=== PATIENT | female | born 1935 | race Hispanic/Latino ===

== ENCOUNTER 2017-11-19 02:32 | Observation (INO) | payer MEDICARE ==
[2017-11-19 02:33] VITALS: BMI 25.4
--- NOTE | 2017-11-19 02:57 | C.PDOC ---
History Of Present Illness 82 year old female is transferred from [facility] ED for left flank pain. Patient was seen and worked up at [facility] that showed she had a left kidney stone. Patient was transferred to the ED for admission. Patient was medically cleared and treated with Rocephin at [facility]. Patient denies fever, chill, nausea, vomit, diarrhea. Time Seen by Provider: 11/19/17 02:43 Chief Complaint (Nursing): Abdominal Pain History Per: Patient History/Exam Limitations: no limitations Onset/Duration Of Symptoms: Days Current Symptoms Are (Timing): Still Present Location Of Pain/Discomfort: Diffuse Radiation Of Pain To:: Back Quality Of Discomfort: "Pain" Associated Symptoms: Urinary Symptoms Exacerbating Factors: None Alleviating Factors: None Recent travel outside of the [place]: No Additional History Per: Patient Abnormal Vaginal Bleeding: No Past Medical History Reviewed: Historical Data, Nursing Documentation, Vital Signs Vital Signs: Last Vital Signs Temp 98.8 F 11/19/17 02:43 Pulse 105 H 11/19/17 02:43 Resp 20 11/19/17 02:43 BP 94/63 L 11/19/17 02:43 Pulse Ox 98 11/19/17 04:40 - Medical History PMH: Hypercholesterolemia, Hyperlipidemia Surgical History: Cholecystectomy - [facility] Procedures CYSTOGRAM NEC (12/21/01) CYSTOMETROGRAM (12/21/01) CYSTOSCOPY NEC (12/21/01) ENDOSCOPIC REMOVAL OF STONE(S) FROM BILIARY TRACT (06/30/00) ENDOSCOPIC SPHINCTEROTOMY AND PAPILLOTOMY (06/30/00) Family History: States: Unknown Family Hx - Social History Hx Alcohol Use: No Hx Substance Use: No - Immunization History Hx Tetanus Toxoid Vaccination: No Hx Influenza Vaccination: Yes Hx Pneumococcal Vaccination: No Review Of Systems Constitutional: Negative for: Fever, Chills Cardiovascular: Negative for: Chest Pain Respiratory: Negative for: Shortness of Breath Gastrointestinal: Positive for: Abdominal Pain. Negative for: Nausea, Vomiting Musculoskeletal: Positive for: Back Pain Skin: Negative for: Rash Physical Exam - Physical Exam Appears: Non-toxic, No Acute Distress Skin: Warm, Dry Head: Normacephalic Eye(s): bilateral: Normal Inspection Nose: No Discharge Oral Mucosa: Moist Neck: Supple Chest: Symmetrical Cardiovascular: Rhythm Regular, No Murmur Respiratory: No Rales, No Rhonchi, No Wheezing Gastrointestinal/Abdominal: Soft, Tenderness (left flank ), No Guarding, No Rebound Extremity: Bilateral: Normal Color And Temperature, Normal ROM Neurological/Psych: Oriented x3, Normal Motor, Normal Sensation Gait: Steady ED Course And Treatment O2 Sat by Pulse Oximetry: 98 (ON RA) Pulse Ox Interpretation: Normal Progress Note: Plan: - EKG. - Labs. - Morphine 2 mg IVP. - Toradol 30 mg IVP. - Zofran 4 mg IVP. - IV fluids. - Blood culture Disposition Discussed With Dr.: Rodrigo Dorman Comment: accepted the pt on his service and took over the care at 4AM Doctor Will See Patient In The: ED Counseled Patient/Family Regarding: Studies Performed, Diagnosis - Disposition Disposition: HOSPITALIZED Disposition Time: 02:57 Condition: FAIR - Clinical Impression Clinical Impression: Abdominal pain, Cystitis, Renal colic on left side - Scribe Statement The provider has reviewed the documentation as recorded by the Scribe Christian Fair All medical record entries made by the Scribe were at my direction and personally dictated by me. I have reviewed the chart and agree that the record accurately reflects my personal performance of the history, physical exam, medical decision making, and the department course for this patient. I have also personally directed, reviewed, and agree with the discharge instructions and disposition. Decision To Admit - Pt Status Changed To: Hospital Disposition Of: Inpatient - Admit Certification Admit to Inpatient:: After my assessment, the patient will require hospitalization for at least two midnights. This is because of the severity of symptoms shown, intensity of services needed, and/or the medical risk in this patient being treated as an outpatient. - InPatient: Physician Admission Certification:: After my assessment, the patient will require hospitalization for at least two midnights. This is because of the severity of symptoms shown, intensity of services needed, and/or the medical risk in this patient being treated as an outpatient. - . Bed Request Type: Regular Admitting Physician: Rodrigo Dorman Patient Diagnosis: Cystitis, Renal colic on left side
[2017-11-19] MEDS ORDERED: Sodium Chloride 0.9% 1,000 ML IV ONE ×2 (03:33→11:15)
[2017-11-19] MEDS ORDERED: Morphine 4 MG/ML VIAL IVP PRN (03:43)
--- NOTE | 2017-11-19 03:44 | CP.PCM.HP ---
<AbhilashBruce pappas - Last Filed: 11/19/17 04:35> History of Present Illness - History of Present Illness History of Present Illness: CC: abdominal pain/flank pain/dysuria for 1d This patient is an 82yo F w/ a PMhx of HLD, and "low blood pressure" who states she had sudden onset lower abdominal and flank pain, worse on the left, since today at 3pm. She states she vomited NBNB contents 4-5 times and went to a satellite center in [place] for [facility] where the following labs were remarkable for: takes unknown "low blood pressure pill" that daughter who works here will bring in Patient comes with labs from [facility] center UA 3+ Leuk Nitrite positive with 3+ blood CT ab pelvis shows obstructing calculi along the proximal left ureter largest measuring up to 6mm with mild to moderate left hydro BUN 17 Creat 1.0 11.4 WBC She states she has never had this before. PMhx: HLD, "low blood pressure" Meds: Esomeprazole, Aspirin "three times a week", Simvastatin, and lasix "when she needs it" Allergies: Cipro; rash Surgical: bladder prolapse and vaginal prolapse with mesh, gallbladder removal, bilateral knee replacement, no adverse reaction to anesthesia in the past. FamHx: Denies Social: Smokes 1 pack for 60 years, social drinker 1-2 drinks on the weekend, denies illicit drugs, independent in all IADL and ADL. Present on Admission - Present on Admission Any Indicators Present on Admission: Yes History of DVT/PE: No History of Uncontrolled Diabetes: No Urinary Catheter: No Decubitus Ulcer Present: No Past Patient History - Past Social History Smoking Status: Heavy Smoker > 10 Cigarettes Daily - CARDIAC Hx Hypercholesterolemia: Yes - GASTROINTESTINAL Hx Gastroesophageal Reflux: Yes - PSYCHIATRIC Hx Substance Use: No - SURGICAL HISTORY Hx Cholecystectomy: Yes - ANESTHESIA Hx Anesthesia: Yes Hx Anesthesia Reactions: No Meds Allergies/Adverse Reactions: Allergies Allergy/AdvReac Type Severity Reaction Status Date / Time ciprofloxacin [From Cipro] Allergy Verified 11/19/17 02:56 Physical Exam - Constitutional Appears: Non-toxic - Head Exam Head Exam: ATRAUMATIC - Eye Exam Eye Exam: EOMI, Normal appearance, PERRL - ENT Exam ENT Exam: Mucous Membranes Moist - Neck Exam Neck exam: Positive for: Full Rom. Negative for: Lymphadenopathy - Respiratory Exam Respiratory Exam: Clear to Auscultation Bilateral, NORMAL BREATHING PATTERN. absent: Rales, Rhonchi, Wheezes - Cardiovascular Exam Cardiovascular Exam: REGULAR RHYTHM, +S1, +S2. absent: Diastolic murmur, Systolic Murmur - GI/Abdominal Exam GI & Abdominal Exam: Soft, Tenderness (in the LLQ and CVA L ). absent: Guarding , Hernia, Rebound, Rigid - Extremities Exam Extremities exam: Positive for: full ROM. Negative for: calf tenderness - Back Exam Back exam: CVA tenderness (L), NORMAL INSPECTION. absent: CVA tenderness (R), paraspinal tenderness - Neurological Exam Neurological exam: Alert, CN II-XII Intact, Oriented x3 - Psychiatric Exam Psychiatric exam: Normal Affect - Skin Skin Exam: Warm Results - Vital Signs Recent Vital Signs: Last Vital Signs Temp 98.8 F 11/19/17 02:43 Pulse 105 H 11/19/17 02:43 Resp 20 11/19/17 02:43 BP 94/63 L 11/19/17 02:43 Pulse Ox 98 11/19/17 02:57 Assessment & Plan - Assessment and Plan (Free Text) Assessment: 82yo F admitted for obstructing renal stone Obstructing Renal Stone -please refer to cat scan from center in patients chart for imaging -labs that were done are also in chart as well; added pre-op labs necessary as well -Dr. Katia Alex; Urology; thank you for your help -NPO, pain control, for surgery/stent placement today -will do echo for preopclearance; given patients age and HLD (with large calcifications on CT in aorta) will need cardiac clearance with echo Hx of HLD -will hold statin for now Proph -Pepcid IV 20 -does not need chemical DVT Discussed with Dr. Dandy Schultz PGY2 Decision To Admit - Pt Status Changed To: Hospital Disposition Of: Observation - . Bed Request Type: Regular Admitting Physician: Rodrigo oDrman <Rodrigo Dorman - Last Filed: 11/19/17 06:42> Results - Vital Signs Recent Vital Signs: Last Vital Signs Temp 97.9 F 11/19/17 05:00 Pulse 90 11/19/17 05:00 Resp 20 11/19/17 05:00 BP 97/58 L 11/19/17 05:00 Pulse Ox 94 L 11/19/17 05:29 - Labs Labs: Laboratory Results - last 24 hr 11/19/17 03:40 PT 12.2 INR 1.1 APTT 33 Attending/Attestation - Attestation I have personally seen and examined this patient.: Yes I have fully participated in the care of the patient.: Yes I have reviewed all pertinent clinical information: Yes Notes (Text): Assessment * Right ureteric calculus proximal x3 6mm size, obstructing, with hydroneprhosis and pain, transferred from free standing ER at [place] with CT report and blood work, Urology recommended need of stent. * H/o chronic tobaco abuse * H/o hypotension and patient on medication for the same, details will be available form family today Plan * CXR, ekg, needed preoperatively * Echo but may not need prior to surgery, but should have as soon available due to h/o hypotension, tobacco abuse, advanced age, atherosclerosis * Emperic Rocephin * Can go for surg with moderate risk for GA, especially h/o hypotension, hemodynamic changes may happen once patient is induced. * GI/dvt prophylaxis * See orders for detail. * Counselled about tobacco cessation.
[2017-11-19] MEDS ORDERED: Sodium Chloride 0.9% 1,000 ML IV SCH ×2 (04:00→09:47)
[2017-11-19] MEDS ORDERED: Sodium Chloride 0.9% 1,000 ML ONE (04:30)
[2017-11-19 04:40] LABS: INR 1.1; PROTHROMBIN TIME 12.2 SECONDS (9.7-12.2)
[2017-11-19] MEDS ORDERED: cefTRIAXone IV 1 gm in Dextros 50 ML IVPB ONE (08:22)
[2017-11-19] MEDS ORDERED: Iohexol 240 (50 ml) ONE (08:22)
[2017-11-19] MEDS ORDERED: Lidocaine 2% Jelly (Uro-Jet) ONE (08:23)
[2017-11-19] MEDS ORDERED: Propofol 10 mg/ml Inj (20 ML) ONE (08:28)
[2017-11-19] MEDS ORDERED: Phenylephrine 10 mg/ml Inj ONE (08:34)
--- NOTE | 2017-11-19 09:00 | CP.PCM.CON ---
Past Patient History - Past Medical History & Family History Past Medical History?: Yes - Past Social History Smoking Status: Heavy Smoker > 10 Cigarettes Daily - CARDIAC Hx Cardiac Disorders: Yes Hx Hypercholesterolemia: Yes - PULMONARY Hx Respiratory Disorders: No - NEUROLOGICAL Hx Neurological Disorder: No - HEENT Hx HEENT Problems: No - RENAL Hx Chronic Kidney Disease: No - ENDOCRINE/METABOLIC Hx Endocrine Disorders: No - HEMATOLOGICAL/ONCOLOGICAL Hx Blood Disorders: No - INTEGUMENTARY Hx Dermatological Problems: No - MUSCULOSKELETAL/RHEUMATOLOGICAL Hx Musculoskeletal Disorders: No Hx Falls: No - GASTROINTESTINAL Hx Gastrointestinal Disorders: Yes Hx Gastroesophageal Reflux: Yes - GENITOURINARY/GYNECOLOGICAL Hx Genitourinary Disorders: No - PSYCHIATRIC Hx Substance Use: No - SURGICAL HISTORY Hx Surgeries: Yes Hx Cholecystectomy: Yes - ANESTHESIA Hx Anesthesia: Yes Hx Anesthesia Reactions: No Meds Allergies/Adverse Reactions: Allergies Allergy/AdvReac Type Severity Reaction Status Date / Time ciprofloxacin [From Cipro] Allergy Verified 11/19/17 02:56 - Medications Medications: Current Medications Sodium Chloride (Sodium Chloride 0.9%) 1,000 mls @ 100 mls/hr IV .Q10H ONE Stop: 11/19/17 13:32 Last Admin: 11/19/17 04:30 Dose: Not Given Sodium Chloride (Sodium Chloride 0.9%) 1,000 mls @ 150 mls/hr IV .Q6H40M [facility] Last Admin: 11/19/17 04:30 Dose: 150 mls/hr Ceftriaxone Sodium (Rocephin Iv 1 Gm Duplex) 50 mls @ 100 mls/hr IVPB DAILY KEYUR PRN Reason: Protocol Ketorolac Tromethamine (Toradol) 30 mg IVP Q6H PRN PRN Reason: Pain, moderate (4-7) Morphine Sulfate (Morphine) 2 mg IVP Q6H PRN PRN Reason: Pain, severe (8-10) Ondansetron HCl (Zofran Inj) 4 mg IVP Q6 PRN PRN Reason: Nausea/Vomiting Pneumococcal Polyvalent Vaccine (Pneumovax 23 Vaccine) 0.5 ml IM .ONCE ONE Stop: 11/21/17 14:01 Results - Vital Signs Recent Vital Signs: Last Vital Signs Temp 98.5 F 11/19/17 07:00 Pulse 93 H 11/19/17 07:00 Resp 20 11/19/17 07:00 BP 96/55 L 11/19/17 07:00 Pulse Ox 95 11/19/17 07:00 - Labs Labs: Laboratory Results - last 24 hr 11/19/17 03:40 PT 12.2 INR 1.1 APTT 33 Assessment & Plan - Assessment and Plan (Free Text) Assessment: Imp: L renal colic UTI Full note t/f - Date & Time Date: 11/19/17 Time: 08:05
--- NOTE | 2017-11-19 09:03 | PCM.SURG1 ---
Surgeon's Initial Post Op Note - Surgeon's Notes Surgeon: Douglas Rooney Manager Coding: none Type of Anesthesia: IV Sedation Pre-Operative Diagnosis: L renal colic. LL Hydronephrosis Operative Findings: same Post-Operative Diagnosis: same. cystitis Operation Performed: cysto. insertion of L ureteral stent. EUA Specimen/Specimens Removed: urine - bladder, L kidney Estimated Blood Loss: EBL {In ML}: 0 Blood Products Given: N/A Post-Op Condition: Good Date of Surgery/Procedure: 11/19/17 Time of Surgery/Procedure: 09:02
[2017-11-19] MEDS ORDERED: HYDROmorphone 0.5 mg/0.5 ml ISec IVP PRN (09:08)
[2017-11-19] MEDS ORDERED: Sodium Chloride 0.9% 500 ML IV ONE ×4 (09:15→10:45)
--- NOTE | 2017-11-19 09:18 | RAD ---
Chest x-ray single frontal view History: Preoperative evaluation. Comparison: 11/19/2017 Findings: Mild venous congestion. Right hilar prominence. Patchy increased markings at the left lung base which may represent mild atelectasis and or subtle infiltrate. Cardiomegaly. Calcification at the aortic knob. Biapical pleural thickening with upper lobe granulomatous changes. Degenerative changes in the spine and shoulders. Impression: Mild venous congestion. Right hilar prominence. Patchy increased markings at the left lung base which may represent mild atelectasis and or subtle infiltrate. Cardiomegaly. Calcification at the aortic knob. Biapical pleural thickening with upper lobe granulomatous changes.
[2017-11-19 09:36] LABS: BASO # 0.1 K/uL (0.0-0.2); BASO % 0.3 % (0.0-2.0); EOS % 0.2 % (0.0-4.0); HEMOGLOBIN 12.7 g/dL (11.0-16.0); LYMPH # 1.6 K/uL (1.0-4.3); MEAN CORPUSCULAR HEMOGLOBIN 32.9 pg (27.0-31.0); MEAN PLATELET VOLUME 7.6 fL (7.2-11.7); MONO % 4.9 % (0.0-10.0); NEUT # 17.3 K/uL (1.8-7.0); NEUT % 86.6 % (50.0-75.0); PLATELET COUNT 144 K/uL (130-400); RBC 3.85 Mil/uL (3.80-5.20); RED CELL DISTRIBUTION WIDTH 12.5 % (11.5-14.5); WHITE BLOOD COUNT 19.9 K/uL (4.8-10.8)
[2017-11-19 09:47] LABS: CALCIUM 8.4 mg/dl (8.6-10.4)
[2017-11-19 10:00] LABS: LYMPHOCYTE 10 % (20-40); MONOCYTE 3 % (0-10); NEUTROPHIL 87 % (50-75); PLATELET ESTIMATE NORMAL (NORMAL); TOTAL CELLS COUNTED 100
[2017-11-19] MEDS ORDERED: cefTRIAXone IV 1 gm in Dextros 50 ML IVPB SCH (10:00)
[2017-11-19] MEDS ORDERED: ePHEDrine 50 mg/ml Inj ONE (10:01)
--- NOTE | 2017-11-19 11:08 | CP.PCM.PN ---
<Yaritza Dietz - Last Filed: 11/19/17 17:36> Subjective - Date & Time of Evaluation Date of Evaluation: 11/19/17 Time of Evaluation: 07:00 - Subjective Subjective: PGY-1 Medicine Note Patient seen and examined at bedside. Patient says she is very tired because she didn't get much sleep last night. Patient says her pain is well controlled and she is only having minimal left sided abdominal pain that radiates to the left flank. Patient has not vomited since yesterday and does not feel nauseous. Patient denies any shortness of breath or chest pain. Objective - Vital Signs/Intake and Output Vital Signs (last 24 hours): Temp Pulse Resp BP Pulse Ox 100.3 F H 89 19 79/50 L 100 11/19/17 09:30 11/19/17 10:15 11/19/17 10:15 11/19/17 10:15 11/19/17 10:15 Intake and Output: 11/19/17 11/19/17 06:59 18:59 Intake Total 450 Balance 450 - Medications Medications: Current Medications Hydromorphone HCl (Dilaudid) 0.5 mg IVP Q10M PRN PRN Reason: Pain, severe (8-10) Stop: 11/19/17 11:08 Ceftriaxone Sodium (Rocephin Iv 1 Gm Duplex) 50 mls @ 100 mls/hr IVPB DAILY KEYUR PRN Reason: Protocol Last Admin: 11/19/17 10:50 Dose: Not Given Sodium Chloride (Sodium Chloride 0.9%) 1,000 mls @ 75 mls/hr IV .[id number] KEYUR Sodium Chloride (Sodium Chloride 0.9%) 1,000 mls @ 125 mls/hr IV .Q8H [facility] Sodium Chloride (Sodium Chloride 0.9%) 500 mls @ 500 mls/hr IV .Q1H ONE Stop: 11/19/17 11:14 Ketorolac Tromethamine (Toradol) 30 mg IVP Q6H PRN PRN Reason: Pain, moderate (4-7) Morphine Sulfate (Morphine) 2 mg IVP Q6H PRN PRN Reason: Pain, severe (8-10) Ondansetron HCl (Zofran Inj) 4 mg IVP Q6 PRN PRN Reason: Nausea/Vomiting Pneumococcal Polyvalent Vaccine (Pneumovax 23 Vaccine) 0.5 ml IM .ONCE ONE Stop: 11/21/17 14:01 - Labs Labs: 11/19/17 09:25 11/19/17 09:25 PT 12.2 SECONDS (9.7-12.2) 11/19/17 03:40 INR 1.1 11/19/17 03:40 APTT 33 SECONDS (21-34) 11/19/17 03:40 - Additional Findings Additional findings: - Constitutional Appears: Non-toxic - Head Exam Head Exam: ATRAUMATIC - Eye Exam Eye Exam: EOMI, Normal appearance, PERRL - ENT Exam ENT Exam: Mucous Membranes Moist - Neck Exam Neck exam: Positive for: Full Rom. Negative for: Lymphadenopathy - Respiratory Exam Respiratory Exam: Clear to Auscultation Bilateral, NORMAL BREATHING PATTERN. absent: Rales, Rhonchi, Wheezes - Cardiovascular Exam Cardiovascular Exam: REGULAR RHYTHM, +S1, +S2. absent: Diastolic murmur, Systolic Murmur - GI/Abdominal Exam GI & Abdominal Exam: Soft, Tenderness (in the LLQ and CVA L ). absent: Guarding , Hernia, Rebound, Rigid - Extremities Exam Extremities exam: Positive for: full ROM. Negative for: calf tenderness - Back Exam Back exam: CVA tenderness (L), NORMAL INSPECTION. absent: CVA tenderness (R), paraspinal tenderness - Neurological Exam Neurological exam: Alert, CN II-XII Intact, Oriented x3 - Psychiatric Exam Psychiatric exam: Normal Affect - Skin Skin Exam: Warm Assessment and Plan - Assessment and Plan (Free Text) Assessment: Obstructing Renal Stone -please refer to cat scan from center in patients chart for imaging -elevated WBC: 11.4 -labs that were done are also in chart as well; added pre-op labs necessary as well -Dr. Katia Alex; Urology; thank you for your help -patient had L ureteral stent placement with Dr. Alex -continue Toradol/ morphine for pain control -Zofran prn for nausea -NS @ 75cc/hr -Ceftriaxone stopped, Primaxin 500mg q6h started on 11/19 -ID, Dr. Chauhan consulted, help appreciated -f/u labs in AM Mild Atelectasis and or Infiltrate Cxray: mild venous congestion, right hilar prominence, patchy increased markings at the left lung base which may represent mild atelectasis and or subtle infiltrate, right hilar prominence, cardiomegaly, calcification at aortic knob, biapical pleural thickening with upper lobe granulomatous changes. -repeat xray in AM Hypotension patient restarted on home medication Midodrine 5mg po daily NS @ 75cc/hr continue to monitor Hx of HLD -will hold statin for now Proph -Pepcid IV 20 -does not need chemical DVT -SCDs <Cm Gant H - Last Filed: 11/20/17 07:08> Objective - Vital Signs/Intake and Output Vital Signs (last 24 hours): Temp Pulse Resp BP Pulse Ox 98.7 F 85 20 99/53 L 98 11/20/17 06:27 11/20/17 06:27 11/20/17 06:27 11/20/17 06:27 11/19/17 23:05 Intake and Output: 11/20/17 11/20/17 06:59 18:59 Intake Total 1125 Balance 1125 - Medications Medications: Current Medications Acetaminophen (Tylenol 325mg Tab) 650 mg PO Q6 PRN PRN Reason: Fever >100.4 F Last Admin: 11/19/17 13:23 Dose: 650 mg Famotidine (Pepcid) 20 mg PO DAILY [facility] Last Admin: 11/19/17 12:02 Dose: 20 mg Sodium Chloride (Sodium Chloride 0.9%) 1,000 mls @ 75 mls/hr IV .[id number] [facility] Sodium Chloride (Sodium Chloride 0.9%) 1,000 mls @ 125 mls/hr IV .Q8H [facility] Last Admin: 11/20/17 06:26 Dose: Not Given Imipenem/Cilastatin Sodium 500 (mg/ Sodium Chloride) 100 mls @ 100 mls/hr IVPB Q6H [facility] PRN Reason: Protocol Last Admin: 11/20/17 06:26 Dose: 100 mls/hr Ketorolac Tromethamine (Toradol) 30 mg IVP Q6H PRN PRN Reason: Pain, moderate (4-7) Midodrine (Proamatine) 5 mg PO DAILY [facility] Last Admin: 11/19/17 12:02 Dose: 5 mg Ondansetron HCl (Zofran Inj) 4 mg IVP Q6 PRN PRN Reason: Nausea/Vomiting Pneumococcal Polyvalent Vaccine (Pneumovax 23 Vaccine) 0.5 ml IM .ONCE ONE Stop: 11/21/17 14:01 Tiotropium Decker (Spiriva) 18 mcg INH RQ24 KEYUR - Labs Labs: 11/19/17 09:25 11/19/17 09:25 PT 12.2 SECONDS (9.7-12.2) 11/19/17 03:40 INR 1.1 11/19/17 03:40 APTT 33 SECONDS (21-34) 11/19/17 03:40 Attending/Attestation - Attestation I have personally seen and examined this patient.: Yes I have fully participated in the care of the patient.: Yes I have reviewed all pertinent clinical information, including history, physical exam and plan: Yes Notes (Text): Medical attending: Patient was seen and examined by me. Agree with the above note by the resident The patient had completed a cystoscopy and stenting done in the morning and had returned from the procedure. Her blood pressure, which she explained to us is usually low and requiring her to be on PO midodrine - was low and considering there is a WBC elevation this was particularly concerning. Abx changed over to Primaxin IV to better cover gram negatives bacteria Also ABG was done, also procalcitonin. The blood and urine studies were already collected and pending When seen after procedure she explained she felt better - no longer with the flank pain Considering her low BP and WBC we will have to monitor her carefully while here. thank you Cm Gant
[2017-11-19] MEDS: Sodium Chloride 0.9% 1,000 ML IV SCH ×2 (12:02→20:45)
[2017-11-19 13:18] LABS: ABG ALLEN TEST POS; ARTERIAL BLOOD GAS HCO3 23.2 mmol/L (21-28); ARTERIAL BLOOD GAS O2 SAT 96.3 % (95-98); ARTERIAL BLOOD GAS PCO2 36 mm/Hg (35-45); ARTERIAL BLOOD GAS PO2 64 mm/Hg (80-100); ARTERIAL BLOOD GAS TCO2 23.4 mmol/L (22-28)
--- NOTE | 2017-11-19 13:53 | RAD ---
PROCEDURE: Intraoperative fluoroscopy HISTORY: OBSTRUCTING URETERAL STONE/HYDRONEPHROSIS COMPARISON: Not available TECHNIQUE: Intraoperative fluoroscopy was provided for retrograde pyelo ureteral atrophy and left ureteral stent insertion. Total time of fluoroscopy was 17.0 seconds. FINDINGS: Multiple fluoroscopic spot films are submitted. IMPRESSION: Fluoroscopy provided.
--- NOTE | 2017-11-19 13:58 | RAD ---
HISTORY: HYDRONEPHROSIS COMPARISON: No prior. FINDINGS: BOWEL: The examination demonstrates contrast material within the collecting system bilaterally. There is left hydroureteronephrosis. There is mild dilatation of the right renal pelvis without caliceal dilatation. No filling defect is identified within the collecting system. BONES: Normal. OTHER FINDINGS: None. IMPRESSION: Left hydroureteronephrosis.
--- NOTE | 2017-11-19 14:14 | CP.PCM.CON ---
History of Present Illness - History of Present Illness History of Present Illness: 82yo F admitted after she had sudden onset lower abdominal and flank pain, worse on the left assoc with vomiting Work up revealed ureteral calculus and underwent stent placement in OR Has hydronephrosis and being treated for UTI / pyelo IV rx in progress ID consulted for antibiotic management PMhx: HLD, "low blood pressure" Meds: Esomeprazole, Aspirin "three times a week", Simvastatin, and lasix "when she needs it" Allergies: Cipro; rash Surgical: bladder prolapse and vaginal prolapse with mesh, gallbladder removal, bilateral knee replacement, no adverse reaction to anesthesia in the past. FamHx: Denies Social: Smokes 1 pack for 60 years, social drinker 1-2 drinks on the weekend, denies illicit drugs, independent in all IADL and ADL. Review of Systems - Constitutional Constitutional: As Per HPI - EENT Eyes: absent: As Per HPI, Blind Spots, Blurred Vision, Change in Vision, Decreased Night Vision, Diplopia, Discharge, Dry Eye, Exophthalmos, Floaters, Irritation, Itchy Eyes, Loss of Peripheral Vision, Pain, Photophobia, Requires Corrective Lenses, Sees Flashes, Spots in Vision, Tunnel Vision, Other Visual Disturbances, Loss of Vision, Other Ears: absent: As Per HPI, Decreased Hearing, Ear Discharge, Ear Pain, Tinnitus, Abnormal Hearing, Disequilibrium, Dizziness, Other Nose/Mouth/Throat: absent: As Per HPI, Epistaxis, Nasal Congestion, Nasal Discharge, Nasal Obstruction, Nasal Trauma, Nose Pain, Post Nasal Drip, Sinus Pain, Sinus Pressure, Bleeding Gums, Change in Voice, Dental Pain, Dry Mouth, Dysphagia, Halitosis, Hoarsness, Lip Swelling, Mouth Lesions, Mouth Pain, Odynophagia, Sore Throat, Throat Swelling, Tongue Swelling, Facial Pain, Neck Pain, Neck Mass, Other - Breasts Breasts: absent: As Per HPI, Change in Shape, Mass, Pain, Nipple Discharge, Nipple Inversion, Skin Changes, Swelling, Other - Cardiovascular Cardiovascular: absent: As Per HPI, Acrocyanosis, Chest Pain, Chest Pain at Rest , Chest Pain with Activity, Claudication, Diaphoresis, Dyspnea, Dyspnea on Exertion, Edema, Irregular Heart Rhythm, Pain Radiating to Arm/Neck/Jaw, Leg Edema, Leg Ulcers, Lightheadedness, Orthopnea, Palpitations, Paroxysmal Nocturnal Dyspnea, Pedal Edema, Radiating Pain, Rapid Heart Rate, Slow Heart Rate, Syncope, Other - Gastrointestinal Gastrointestinal: absent: As Per HPI, Abdominal Pain, Belching, Bloating, Change in Bowel Habits, Change in Stool Character, Coffee Ground Emesis, Constipation, Cramping, Diarrhea, Dyspepsia, Dysphagia, Early Satiety, Excessive Flatus, Fecal Incontinence, Heartburn, Hematemesis, Hematochezia, Loose Stools, Melena, Nausea, Odynophagia, Temesmus, Vomiting, Other - Genitourinary Genitourinary: As Per HPI - Reproductive: Female Reproductive:Female: absent: As Per HPI, Amenorrhea, Amenorrhea/ Control, Currently Menstual, Cycle <21 Days, Cycle >35 Days, Cycle Variable, Menses 1-7 Days, Menses >/= 8 Days, Menses Variable, Cycle > 4 Weeks Between, No Menses for 6 Months, Heavy Menses, Light Menses, Normal Menses, Spotting Between Cycles , S/P Hysterectomy, Menopausal, Post Menopausal, Premenarche, Abnormal Vaginal Bleeding, Dysmenorrhea, Dyspareunia, Genital Lesions, Genital Pruritis, Pelvic Pain, Prolapse Symptoms, Sexual Dysfunction, Vaginal Discharge, Vaginal Dryness , Vaginal Odor, Vaginal Pruritis, Other - Menstruation Menstruation: absent: As Per HPI, Amenorrhea, Amenorrhea/ Control, Currently Menstual, Cycle <21 Days, Cycle >35 Days, Cycle Variable, Menses 1-7 Days, Menses >/= 8 Days, Menses Variable, Cycle > 4 Weeks Between, No Menses for 6 Months, Heavy Menses, Light Menses, Normal Menses, Spotting Between Cycles , S/P Hysterectomy, Menopausal, Post Menopausal, Premenarche, Abnormal Vaginal Bleeding, Dysmenorrhea, Other - Musculoskeletal Musculoskeletal: absent: As Per HPI, Abnormal Gait, Arthralgias, Atrophy, Back Pain, Deformity, Joint Swelling, Limited Range of Motion, Loss of Height, Muscle Cramps, Muscle Weakness, Myalgias, Neck Pain, Numbness, Radiating Pain into Limb, Stiffness, Tingling, Other - Integumentary Integumentary: absent: As Per HPI, Acne, Alopecia, Bleeding Lesions, Change in Hair, Change in Nails, Change in Pigmentation, Changing Lesions, Dry Skin, Erythema, Furuncle, Hirsutism, Lesions, New Lesions, Non-Healing Lesions, Photosensitivity, Pruritus, Rash, Skin Pain, Skin Ulcer, Sores, Striae, Swelling , Unusual Bruising, Wounds, Jaundice, Other - Neurological Neurological: absent: As Per HPI, Abnormal Gait, Abnormal Hearing, Abnormal Movements, Abnormal Speech, Behavioral Changes, Burning Sensations, Confusion, Convulsions, Disequilibrium, Dizziness, Numbness, Focal Weakness, Frequent Falls , Headaches, Lack of Coordination, Loss of Vision, Memory Loss, Paresthesias, Radicular Pain, Restless Legs, Sensory Deficit, Syncope, Tingling, Tremor, Vertigo, Weakness, Other Visual Disturbances, Other - Psychiatric Psychiatric: absent: As Per HPI, Abnormal Sleep Pattern, Anhedonia, Anxiety, Auditory Hallucinations, Behavioral Changes, Change in Appetite, Change in Libido, Confusion, Depression, Difficulty Concentrating, Hallucinations, Homicidal Ideation, Hopelessness, Irritability, Memory Loss, Mood Swings, Panic Attacks, Paranoia, Suicidal Ideation, Visual Hallucinations, Tactile Hallucinations, Other - Endocrine Endocrine: absent: As Per HPI, Change in Body Appearance, Change in Libido, Cold Intolorance, Deepening of Voice, Excessive Sweating, Fatigue, Flushing, Heat Intolorance, Increase in Ring/Shoe/Hat Size, Palpitations, Polydipsia, Polyphagia, Polyuria, Other - Hematologic/Lymphatic Hematologic: absent: As Per HPI, Easy Bleeding, Easy Bruising, Lymphadenopathy, Other Past Patient History - Past Medical History & Family History Past Medical History?: Yes - Past Social History Smoking Status: Heavy Smoker > 10 Cigarettes Daily - CARDIAC Hx Cardiac Disorders: Yes Hx Hypercholesterolemia: Yes - PULMONARY Hx Respiratory Disorders: No - NEUROLOGICAL Hx Neurological Disorder: No - HEENT Hx HEENT Problems: No - RENAL Hx Chronic Kidney Disease: No - ENDOCRINE/METABOLIC Hx Endocrine Disorders: No - HEMATOLOGICAL/ONCOLOGICAL Hx Blood Disorders: No - INTEGUMENTARY Hx Dermatological Problems: No - MUSCULOSKELETAL/RHEUMATOLOGICAL Hx Musculoskeletal Disorders: No Hx Falls: No - GASTROINTESTINAL Hx Gastrointestinal Disorders: Yes Hx Gastroesophageal Reflux: Yes - GENITOURINARY/GYNECOLOGICAL Hx Genitourinary Disorders: No - PSYCHIATRIC Hx Substance Use: No - SURGICAL HISTORY Hx Surgeries: Yes Hx Cholecystectomy: Yes - ANESTHESIA Hx Anesthesia: Yes Hx Anesthesia Reactions: No Meds Allergies/Adverse Reactions: Allergies Allergy/AdvReac Type Severity Reaction Status Date / Time ciprofloxacin [From Cipro] Allergy Verified 11/19/17 02:56 - Medications Medications: Current Medications Acetaminophen (Tylenol 325mg Tab) 650 mg PO Q6 PRN PRN Reason: Fever >100.4 F Last Admin: 11/19/17 13:23 Dose: 650 mg Famotidine (Pepcid) 20 mg PO DAILY [facility] Last Admin: 11/19/17 12:02 Dose: 20 mg Sodium Chloride (Sodium Chloride 0.9%) 1,000 mls @ 75 mls/hr IV .[id number] [facility] Sodium Chloride (Sodium Chloride 0.9%) 1,000 mls @ 125 mls/hr IV .Q8H [facility] Last Admin: 11/19/17 12:02 Dose: 125 mls/hr Imipenem/Cilastatin Sodium 500 (mg/ Sodium Chloride) 100 mls @ 100 mls/hr IVPB Q6H [facility] PRN Reason: Protocol Last Admin: 11/19/17 13:26 Dose: 100 mls/hr Ketorolac Tromethamine (Toradol) 30 mg IVP Q6H PRN PRN Reason: Pain, moderate (4-7) Midodrine (Proamatine) 5 mg PO DAILY [facility] Last Admin: 11/19/17 12:02 Dose: 5 mg Ondansetron HCl (Zofran Inj) 4 mg IVP Q6 PRN PRN Reason: Nausea/Vomiting Pneumococcal Polyvalent Vaccine (Pneumovax 23 Vaccine) 0.5 ml IM .ONCE ONE Stop: 11/21/17 14:01 Physical Exam - Constitutional Appears: Non-toxic, Chronically Ill - Head Exam Head Exam: NORMOCEPHALIC - Eye Exam Eye Exam: PERRL - ENT Exam ENT Exam: Mucous Membranes Dry, Normal External Ear Exam - Neck Exam Neck exam: Negative for: Lymphadenopathy - Respiratory Exam Respiratory Exam: Decreased Breath Sounds, Clear to Auscultation Bilateral - Cardiovascular Exam Cardiovascular Exam: REGULAR RHYTHM, +S1, +S2 - GI/Abdominal Exam GI & Abdominal Exam: Diminished Bowel Sounds, Soft. absent: Tenderness - Rectal Exam Rectal Exam: Deferred - Exam Exam: NORMAL INSPECTION - Extremities Exam Extremities exam: Negative for: pedal edema - Back Exam Back exam: absent: CVA tenderness (L), CVA tenderness (R) - Neurological Exam Neurological exam: Alert, CN II-XII Intact, Oriented x3, Reflexes Normal - Psychiatric Exam Psychiatric exam: Normal Mood - Skin Skin Exam: Dry Results - Vital Signs Recent Vital Signs: Last Vital Signs Temp 100.3 F H 11/19/17 13:23 Pulse 90 11/19/17 11:30 Resp 20 11/19/17 11:30 BP 79/51 L 11/19/17 12:50 Pulse Ox 95 11/19/17 11:30 - Labs Result Diagrams: 11/19/17 09:25 11/19/17 09:25 Labs: Laboratory Results - last 24 hr 11/19/17 11/19/17 11/19/17 03:40 09:25 09:25 WBC 19.9 H RBC 3.85 Hgb 12.7 Hct 36.2 MCV 94.0 MCH 32.9 H MCHC 35.0 RDW 12.5 Plt Count 144 MPV 7.6 Neut % (Auto) 86.6 H Lymph % (Auto) 8.0 L [place] % (Auto) 4.9 Eos % (Auto) 0.2 Baso % (Auto) 0.3 Neut # (Auto) 17.3 H Lymph # (Auto) 1.6 [place] # (Auto) 1.0 H Eos # (Auto) 0.0 Baso # (Auto) 0.1 Neutrophils % (Manual) 87 H Lymphocytes % (Manual) 10 L Monocytes % (Manual) 3 Platelet Estimate Normal RBC Morphology Normal PT 12.2 INR 1.1 APTT 33 Puncture Site pCO2 pO2 HCO3 ABG pH ABG Total CO2 ABG O2 Saturation ABG Base Excess Loc Test ABG Potassium Glucose Lactate Sodium 141 Potassium 4.4 Chloride 109 H Carbon Dioxide 21 L Anion Gap 16 BUN 17 Creatinine 1.2 Est GFR ( Amer) 52 Est GFR (Non-Af Amer) 43 Random Glucose 99 Calcium 8.4 L Arterial Blood Potassium 11/19/17 13:15 WBC RBC Hgb Hct MCV MCH MCHC RDW Plt Count MPV Neut % (Auto) Lymph % (Auto) [place] % (Auto) Eos % (Auto) Baso % (Auto) Neut # (Auto) Lymph # (Auto) [place] # (Auto) Eos # (Auto) Baso # (Auto) Neutrophils % (Manual) Lymphocytes % (Manual) Monocytes % (Manual) Platelet Estimate RBC Morphology PT INR APTT Puncture Site Rra pCO2 36 pO2 64 L HCO3 23.2 ABG pH 7.40 ABG Total CO2 23.4 ABG O2 Saturation 96.3 ABG Base Excess -2.0 Loc Test Pos ABG Potassium 3.9 Glucose 100 Lactate 0.7 Sodium 138.0 Potassium Chloride 110.0 H Carbon Dioxide Anion Gap BUN Creatinine Est GFR ( Amer) Est GFR (Non-Af Amer) Random Glucose Calcium Arterial Blood Potassium 3.9 Assessment & Plan (1) UTI (urinary tract infection) Status: Acute (2) Abdominal pain Status: Acute (3) Cystitis Status: Acute (4) Renal colic on left side Status: Acute - Assessment and Plan (Free Text) Assessment: cont empiric IV antibiotics Plan: await cultures
[2017-11-19 20:36] LABS: SQUAMOUS EPITHIAL 1 /hpf (0-5); URINE BACTERIA RARE (<OCC); URINE BILIRUBIN NEGATIVE (NEGATIVE); URINE BLOOD 3+ (NEGATIVE); URINE CLARITY Hazy (Clear); URINE COLOR Red (YELLOW); URINE GLUCOSE (UA) 1+ mg/dL (Normal); URINE LEUKOCYTE ESTERASE 3+ Leu/uL (Negative); URINE PROTEIN 2+ mg/dL (NEGATIVE)
[2017-11-19 22:06] VITALS: RESP 20
[2017-11-20] MEDS: Sodium Chloride 0.9% 1,000 ML IV SCH ×2 (06:26→11:00)
[2017-11-20 07:14] LABS: BASO # 0.1 K/uL (0.0-0.2); BASO % 0.4 % (0.0-2.0); EOS # 0.1 K/uL (0.0-0.7); HEMOGLOBIN 10.9 g/dL (11.0-16.0); LYMPH # 1.8 K/uL (1.0-4.3); LYMPH % 15.6 % (20.0-40.0); MEAN CELL VOLUME 94.3 fL (81.0-99.0); MEAN CORPUSCULAR HEMOGLOBIN 32.9 pg (27.0-31.0); MEAN CORPUSCULAR HGB CONC 34.9 g/dL (33.0-37.0); MEAN PLATELET VOLUME 8.6 fL (7.2-11.7); MONO # 0.9 K/uL (0.0-0.8); MONO % 7.4 % (0.0-10.0); NEUT # 8.9 K/uL (1.8-7.0); NEUT % 75.6 % (50.0-75.0); NRBC % 0.1 % (0.0-2.0); RBC 3.31 Mil/uL (3.80-5.20); RED CELL DISTRIBUTION WIDTH 12.8 % (11.5-14.5); WHITE BLOOD COUNT 11.8 K/uL (4.8-10.8)
[2017-11-20] MEDS: Tiotropium 18 mcg Cap For Inhalation INH SCH (07:41)
[2017-11-20 07:42] LABS: ALBUMIN 2.9 g/dL (3.5-5.0); ALT/SGPT 20 U/L (9-52); AST/SGOT 24 U/L (14-36); BLOOD UREA NITROGEN 14 mg/dL (7-17); CALCIUM 8.2 mg/dl (8.6-10.4); GFR AFRICAN-AMERICAN > 60; GFR NON-AFRICAN AMERICAN 53
--- NOTE | 2017-11-20 08:16 | RAD ---
HISTORY: subtle infiltrate COMPARISON: 11/19/2017 FINDINGS: LUNGS: No active pulmonary disease. PLEURA: No significant pleural effusion identified, no pneumothorax apparent. CARDIOVASCULAR: Normal. OSSEOUS STRUCTURES: No significant abnormalities. VISUALIZED UPPER ABDOMEN: Normal. OTHER FINDINGS: None. IMPRESSION: No active disease.
--- NOTE | 2017-11-20 10:00 | CON ---
DATE: 11/19/2017 REQUESTING PHYSICIAN: Rodrigo Dorman MD REASON FOR CONSULTATION: Urinary tract infection. Urolithiasis. Hydronephrosis. HISTORY OF PRESENT ILLNESS: The patient is an 82 year-old female admitted with flank pain. The patient developed left flank pain yesterday afternoon. She has severe pain involving the left flank. The patient reports no hematuria. No dysuria. The patient has no urinary frequency. The patient had outpatient evaluation while in [place]. She was found to have pyuria. She was found to have hydronephrosis and urolithiasis on the left. The patient was admitted this morning through the emergency room. The patient has been treated with IV antibiotics. There is no history of previous urolithiasis. The patient has had possible history of previous urinary tract infection. The patient has a past medical history of hypotension treated with oral medication. ALLERGIES: THE PATIENT HAS HISTORY OF ALLERGY TO CIPRO. SOCIAL HISTORY: The patient smokes approximately one pack of cigarettes per day. PAST SURGICAL HISTORY: There is history of previous surgery including labor and delivery, including bilateral knee replacement. The patient has had surgery for pelvic prolapse. PHYSICAL EXAMINATION: GENERAL: The patient is a well-developed elderly female. The patient is awake and alert. VITAL SIGNS: The patient is afebrile at present. ABDOMEN: Soft, nondistended. There is marked left upper quadrant and left flank tenderness. BACK: Left flank tenderness. LABORATORY DATA: Reviewed. IMPRESSION Left renal colic. Left ureteral calculi. Urinary tract infection. RECOMMENDATIONS/PLAN: Cultures pending. Continue antibiotic therapy. For cystoscopy and stent insertion. Findings discussed with the patient as well as with the attending physician, as well as with the patient's family. For cystoscopy this a.m. treatment for stone disease to follow. Thank you for recommending the patient for urology consultation. Julieth Rooney MD
--- NOTE | 2017-11-20 10:42 | OP ---
PROCEDURE DATE: 11/19/2017 PREOPERATIVE DIAGNOSES: Left renal colic. Left hydronephrosis. Left ureteral calculi. Urinary tract infection. POSTOPERATIVE DIAGNOSES: Left renal colic. Left hydronephrosis. Left ureteral calculi. Urinary tract infection. PROCEDURE: Cystoscopy. Left ureteral catheterization. Insertion of left ureteral stent. Exam under anesthesia. OPERATING SURGEON: Julieth Rooney MD DESCRIPTION OF PROCEDURE: The patient was in the supine position. Plain films of the abdomen were obtained in PA and oblique views. The abdominal x-ray revealed the presence of contrast within the renal collecting system. There was mild fullness of the right renal collecting system with a possible ureteropelvic junction obstruction up on the right. The left renal collecting system demonstrated moderate dilation. The ureter and kidney were full of contrast. There were no other stones identified due to the presence of the contrast within the collecting systems. The patient was in lithotomy position. Genitalia prepped and draped sterilely. Sedation was applied by the anesthesiologist. A 22-Dutch cystoscope sheath was introduced. The patient received perioperative antibiotics. Urine was sent from the bladder for bacteriologic examination. There was diffuse [id number] cystitis. There was cloudy urine within the bladder. The bladder was irrigated until visibility improved. The bladder was reinspected. There was moderate bladder trabeculation with no bladder tumor. There was no bladder stone. The ureteral orifices were identified. A 0.035-inch guidewire was inserted into the left ureteral orifice and passed up to level of kidney. A 6-Dutch multi-length stent was inserted over the guidewire. Proper position was confirmed with fluoroscopy and endoscopy. The guidewire was removed. The stent was left in place. There was a hydronephrotic drip from the left kidney. Urine from the left kidney was sent for bacteriologic examination as well. The patient tolerated the procedure without complication. Julieth Rooney MD
--- NOTE | 2017-11-20 11:59 | CARD ---
APPROVED REPORT EKG Measurement Heart [id number] <Conclusion> Normal sinus rhythm Possible Left atrial enlargement Low voltage QRS Right bundle branch block Abnormal ECG
--- NOTE | 2017-11-20 18:47 | CP.PCM.PN ---
Subjective - Date & Time of Evaluation Date of Evaluation: 11/20/17 Time of Evaluation: 07:00 - Subjective Subjective: BP still low IV rx in progress cultures neg thus far Objective - Vital Signs/Intake and Output Vital Signs (last 24 hours): Temp Pulse Resp BP Pulse Ox 97.2 F L 64 20 80/48 L 96 11/20/17 15:00 11/20/17 16:00 11/20/17 15:00 11/20/17 15:00 11/20/17 16:00 Intake and Output: 11/20/17 11/20/17 06:59 18:59 Intake Total 1125 Balance 1125 - Medications Medications: Current Medications Acetaminophen (Tylenol 325mg Tab) 650 mg PO Q6 PRN PRN Reason: Fever >100.4 F Last Admin: 11/19/17 13:23 Dose: 650 mg Famotidine (Pepcid) 20 mg PO DAILY [facility] Last Admin: 11/20/17 09:20 Dose: 20 mg Sodium Chloride (Sodium Chloride 0.9%) 1,000 mls @ 75 mls/hr IV .[id number] [facility] Sodium Chloride (Sodium Chloride 0.9%) 1,000 mls @ 125 mls/hr IV .Q8H [facility] Last Admin: 11/20/17 11:00 Dose: 125 mls/hr Imipenem/Cilastatin Sodium 500 (mg/ Sodium Chloride) 100 mls @ 100 mls/hr IVPB Q6H [facility] PRN Reason: Protocol Last Admin: 11/20/17 06:26 Dose: 100 mls/hr Ketorolac Tromethamine (Toradol) 30 mg IVP Q6H PRN PRN Reason: Pain, moderate (4-7) Midodrine (Proamatine) 5 mg PO DAILY [facility] Last Admin: 11/20/17 09:20 Dose: 5 mg Nicotine (Nicoderm Cq) 1 patch TD DAILY [facility] Last Admin: 11/20/17 11:00 Dose: 1 patch Ondansetron HCl (Zofran Inj) 4 mg IVP Q6 PRN PRN Reason: Nausea/Vomiting Pneumococcal Polyvalent Vaccine (Pneumovax 23 Vaccine) 0.5 ml IM .ONCE ONE Stop: 11/21/17 14:01 Tiotropium [place] (Spiriva) 18 mcg INH RQ24 [facility] Last Admin: 11/20/17 07:41 Dose: 18 mcg - Labs Labs: 11/20/17 06:45 11/20/17 06:45 PT 12.2 SECONDS (9.7-12.2) 11/19/17 03:40 INR 1.1 11/19/17 03:40 APTT 33 SECONDS (21-34) 11/19/17 03:40 - Constitutional Appears: Non-toxic, Chronically Ill - Head Exam Head Exam: NORMOCEPHALIC - Eye Exam Eye Exam: PERRL - ENT Exam ENT Exam: Mucous Membranes Dry - Neck Exam Neck Exam: absent: Lymphadenopathy - Respiratory Exam Respiratory Exam: Decreased Breath Sounds - Cardiovascular Exam Cardiovascular Exam: REGULAR RHYTHM - GI/Abdominal Exam GI & Abdominal Exam: Distended, Soft - Rectal Exam Rectal Exam: Deferred - Exam Exam: NORMAL INSPECTION - Extremities Exam Extremities Exam: absent: Pedal Edema - Back Exam Back Exam: absent: CVA tenderness (L), CVA tenderness (R) Assessment and Plan (1) UTI (urinary tract infection) Status: Acute (2) Abdominal pain Status: Acute (3) Cystitis Status: Acute (4) Renal colic on left side Status: Acute - Assessment and Plan (Free Text) Assessment: cont iv rx await cultures
--- NOTE | 2017-11-20 19:36 | CP.PCM.PN ---
<Yaritza Dietz - Last Filed: 11/20/17 19:32> Subjective - Date & Time of Evaluation Date of Evaluation: 11/20/17 Time of Evaluation: 07:00 - Subjective Subjective: PGY1- Medicine Note Patient seen and examined at bedside and in no acute distress. Patient says her pain has resolved and she is eager to go home. Patient had some slight hematuria this morning which she said resolved with her next urination. Patient denies denies any dizziness, chest pain, shortness of breath, nausea, vomiting, diarrhea, or constipation. Objective - Vital Signs/Intake and Output Vital Signs (last 24 hours): Temp Pulse Resp BP Pulse Ox 97.2 F L 64 20 80/48 L 96 11/20/17 15:00 11/20/17 16:00 11/20/17 15:00 11/20/17 15:00 11/20/17 16:00 - Medications Medications: Current Medications Acetaminophen (Tylenol 325mg Tab) 650 mg PO Q6 PRN PRN Reason: Fever >100.4 F Last Admin: 11/19/17 13:23 Dose: 650 mg Famotidine (Pepcid) 20 mg PO DAILY [facility] Last Admin: 11/20/17 09:20 Dose: 20 mg Imipenem/Cilastatin Sodium 500 (mg/ Sodium Chloride) 100 mls @ 100 mls/hr IVPB Q6H KEYUR PRN Reason: Protocol Last Admin: 11/20/17 06:26 Dose: 100 mls/hr Ketorolac Tromethamine (Toradol) 30 mg IVP Q6H PRN PRN Reason: Pain, moderate (4-7) Midodrine (Proamatine) 5 mg PO DAILY [facility] Last Admin: 11/20/17 09:20 Dose: 5 mg Nicotine (Nicoderm Cq) 1 patch TD DAILY [facility] Last Admin: 11/20/17 11:00 Dose: 1 patch Ondansetron HCl (Zofran Inj) 4 mg IVP Q6 PRN PRN Reason: Nausea/Vomiting Pneumococcal Polyvalent Vaccine (Pneumovax 23 Vaccine) 0.5 ml IM .ONCE ONE Stop: 11/21/17 14:01 Tiotropium [place] (Spiriva) 18 mcg INH RQ24 [facility] Last Admin: 11/20/17 07:41 Dose: 18 mcg - Labs Labs: 11/20/17 06:45 11/20/17 06:45 PT 12.2 SECONDS (9.7-12.2) 11/19/17 03:40 INR 1.1 11/19/17 03:40 APTT 33 SECONDS (21-34) 11/19/17 03:40 - Additional Findings Additional findings: - Constitutional Appears: Non-toxic - Head Exam Head Exam: ATRAUMATIC - Eye Exam Eye Exam: EOMI, Normal appearance, PERRL - ENT Exam ENT Exam: Mucous Membranes Moist - Neck Exam Neck exam: Positive for: Full Rom. Negative for: Lymphadenopathy - Respiratory Exam Respiratory Exam: Clear to Auscultation Bilateral, NORMAL BREATHING PATTERN. absent: Rales, Rhonchi, Wheezes - Cardiovascular Exam Cardiovascular Exam: REGULAR RHYTHM, +S1, +S2. absent: Diastolic murmur, Systolic Murmur - GI/Abdominal Exam GI & Abdominal Exam: Soft, Tenderness (in the LLQ and CVA L ). absent: Guarding , Hernia, Rebound, Rigid - Extremities Exam Extremities exam: Positive for: full ROM. Negative for: calf tenderness - Back Exam Back exam: CVA tenderness (L), NORMAL INSPECTION. absent: CVA tenderness (R), paraspinal tenderness - Neurological Exam Neurological exam: Alert, CN II-XII Intact, Oriented x3 - Psychiatric Exam Psychiatric exam: Normal Affect - Skin Skin Exam: Warm Assessment and Plan - Assessment and Plan (Free Text) Assessment: Obstructing Renal Stone -please refer to cat scan from center in patients chart for imaging -labs that were done are also in chart as well; added pre-op labs necessary as well -Dr. Katia Alex; Urology; thank you for your help -patient had L ureteral stent placement with Dr. Alex -continue Toradol/ morphine for pain control -Zofran prn for nausea -Ceftriaxone stopped, Primaxin 500mg q6h started on 11/19 -ID, Dr. Chauhan consulted, help appreciated Mild Atelectasis and or Infiltrate Cxray: mild venous congestion, right hilar prominence, patchy increased markings at the left lung base which may represent mild atelectasis and or subtle infiltrate, right hilar prominence, cardiomegaly, calcification at aortic knob, biapical pleural thickening with upper lobe granulomatous changes. -repeat xray: no active disease Hypotension improving patient restarted on home medication Midodrine 5mg po daily fluids stopped continue to monitor Hx of HLD -will hold statin for now Proph -Pepcid IV 20 -does not need chemical DVT -SCDs <Cm Gant - Last Filed: 11/21/17 07:20> Objective - Vital Signs/Intake and Output Vital Signs (last 24 hours): Temp Pulse Resp BP Pulse Ox 98.2 F 84 20 118/68 96 11/20/17 23:05 11/20/17 23:05 11/20/17 23:05 11/20/17 23:05 11/21/17 06:33 Intake and Output: 11/21/17 11/21/17 06:59 18:59 Intake Total 1270 Balance 1270 - Medications Medications: Current Medications Acetaminophen (Tylenol 325mg Tab) 650 mg PO Q6 PRN PRN Reason: Fever >100.4 F Last Admin: 11/19/17 13:23 Dose: 650 mg Famotidine (Pepcid) 20 mg PO DAILY [facility] Last Admin: 11/20/17 09:20 Dose: 20 mg Imipenem/Cilastatin Sodium 500 (mg/ Sodium Chloride) 100 mls @ 100 mls/hr IVPB Q6H [facility] PRN Reason: Protocol Last Admin: 11/21/17 00:37 Dose: 100 mls/hr Ketorolac Tromethamine (Toradol) 30 mg IVP Q6H PRN PRN Reason: Pain, moderate (4-7) Midodrine (Proamatine) 5 mg PO DAILY [facility] Last Admin: 11/20/17 09:20 Dose: 5 mg Nicotine (Nicoderm Cq) 1 patch TD DAILY [facility] Last Admin: 11/20/17 11:00 Dose: 1 patch Ondansetron HCl (Zofran Inj) 4 mg IVP Q6 PRN PRN Reason: Nausea/Vomiting Pneumococcal Polyvalent Vaccine (Pneumovax 23 Vaccine) 0.5 ml IM .ONCE ONE Stop: 11/21/17 14:01 Tiotropium [place] (Spiriva) 18 mcg INH RQ24 [facility] Last Admin: 11/20/17 07:41 Dose: 18 mcg - Labs Labs: 11/21/17 06:28 11/21/17 06:28 PT 12.2 SECONDS (9.7-12.2) 11/19/17 03:40 INR 1.1 11/19/17 03:40 APTT 33 SECONDS (21-34) 11/19/17 03:40 Attending/Attestation - Attestation I have personally seen and examined this patient.: Yes I have fully participated in the care of the patient.: Yes I have reviewed all pertinent clinical information, including history, physical exam and plan: Yes Notes (Text): Medical attending: Patient was seen and examined by me, agree with the above note by the resident The patient was very talkative - she reported no left abdominal and no left flank pain. The patient continues to have low BP - however improved since the previous day WBC decreased to 11 and so far the culture of blood is negative 24 hrs thank you Cm Gant
[2017-11-21 06:37] LABS: BASO % 0.4 % (0.0-2.0); EOS # 0.3 K/uL (0.0-0.7); EOS % 3.2 % (0.0-4.0); HEMOGLOBIN 10.6 g/dL (11.0-16.0); LYMPH # 2.3 K/uL (1.0-4.3); LYMPH % 27.2 % (20.0-40.0); MEAN CELL VOLUME 93.5 fL (81.0-99.0); MEAN CORPUSCULAR HEMOGLOBIN 32.8 pg (27.0-31.0); MEAN CORPUSCULAR HGB CONC 35.1 g/dL (33.0-37.0); MEAN PLATELET VOLUME 8.4 fL (7.2-11.7); MONO # 0.7 K/uL (0.0-0.8); MONO % 8.7 % (0.0-10.0); NEUT # 5.2 K/uL (1.8-7.0); NEUT % 60.5 % (50.0-75.0); RBC 3.24 Mil/uL (3.80-5.20); RED CELL DISTRIBUTION WIDTH 12.8 % (11.5-14.5); WHITE BLOOD COUNT 8.5 K/uL (4.8-10.8)
[2017-11-21 06:59] LABS: ALBUMIN 2.8 g/dL (3.5-5.0); ALT/SGPT 18 U/L (9-52); AST/SGOT 28 U/L (14-36); BLOOD UREA NITROGEN 13 mg/dL (7-17); CALCIUM 8.3 mg/dl (8.6-10.4); GFR AFRICAN-AMERICAN > 60; GFR NON-AFRICAN AMERICAN > 60
[2017-11-21] MEDS: Tiotropium 18 mcg Cap For Inhalation INH SCH (08:04)
--- NOTE | 2017-11-21 09:00 | CP.PCM.DIS ---
<Yaritza Dietz - Last Filed: 11/21/17 16:06> Provider - Provider Date of Admission: 11/19/17 03:47 Attending physician: Cm Gant DO Primary care physician: Dr. Haile Consults: Dr. Rooney (urology) Dr. Chauhan (ID) Time Spent in preparation of Discharge (in minutes): 40 Diagnosis - Discharge Diagnosis (1) Ureteral calculus, left Status: Acute (2) Pyelonephritis Status: Resolved (3) UTI (urinary tract infection) Status: Resolved (4) Tobacco abuse disorder Status: Chronic Hospital Course - Lab Results Lab Results: Micro Results 11/19/17 03:38 Blood-Venous Blood Culture - Preliminary NO GROWTH AFTER 48 HOURS 11/19/17 03:38 Blood-Venous Blood Culture - Preliminary NO GROWTH AFTER 48 HOURS 11/19/17 08:46 Urine,Catheterized Urine Culture - Final No Growth (<1,000 CFU/ML) Most Recent Lab Values WBC 8.5 K/uL (4.8-10.8) 11/21/17 06:28 RBC 3.24 Mil/uL (3.80-5.20) L 11/21/17 06:28 Hgb 10.6 g/dL (11.0-16.0) L 11/21/17 06:28 Hct 30.3 % (34.0-47.0) L 11/21/17 06:28 MCV 93.5 fL (81.0-99.0) 11/21/17 06:28 MCH 32.8 pg (27.0-31.0) H 11/21/17 06:28 MCHC 35.1 g/dL (33.0-37.0) 11/21/17 06:28 RDW 12.8 % (11.5-14.5) 11/21/17 06:28 Plt Count 116 K/uL (130-400) L 11/21/17 06:28 MPV 8.4 fL (7.2-11.7) 11/21/17 06:28 Neut % (Auto) 60.5 % (50.0-75.0) 11/21/17 06:28 Lymph % (Auto) 27.2 % (20.0-40.0) 11/21/17 06:28 [place] % (Auto) 8.7 % (0.0-10.0) 11/21/17 06:28 Eos % (Auto) 3.2 % (0.0-4.0) 11/21/17 06: Baso % (Auto) 0.4 % (0.0-2.0) 11/21/17 06:28 Neut # (Auto) 5.2 K/uL (1.8-7.0) 11/21/17 06: Lymph # (Auto) 2.3 K/uL (1.0-4.3) 11/21/17 06:28 [place] # (Auto) 0.7 K/uL (0.0-0.8) 11/21/17: Eos # (Auto) 0.3 K/uL (0.0-0.7) 11/21/17 06: Baso # (Auto) 0.0 K/uL (0.0-0.2) 11/21/17 06:28 Neutrophils % (Manual) 87 % (50-75) H 11/19/17 09:25 Lymphocytes % (Manual) 10 % (20-40) L 11/19/17 09:25 Monocytes % (Manual) 3 % (0-10) 11/19/17 09:25 Differential Comment 11/20/17 06:45 Platelet Estimate Normal (NORMAL) 11/19/17 09:25 RBC Morphology Normal 11/19/17 09:25 PT 12.2 SECONDS (9.7-12.2) 11/19/17 03:40 INR 1.1 11/19/17 03:40 APTT 33 SECONDS (21-34) 11/19/17 03:40 Puncture Site Rra 11/19/17 13:15 pCO2 36 mm/Hg (35-45) 11/19/17 13:15 pO2 64 mm/Hg (80-100) L 11/19/17 13:15 HCO3 23.2 mmol/L (21-28) 11/19/17 13:15 ABG pH 7.40 (7.35-7.45) 11/19/17 13:15 ABG Total CO2 23.4 mmol/L (22-28) 11/19/17 13:15 ABG O2 Saturation 96.3 % (95-98) 11/19/17 13:15 ABG Base Excess -2.0 mmol/L (-2.0-3.0) 11/19/17 13:15 Loc Test Pos 11/19/17 13:15 ABG Potassium 3.9 mmol/L (3.6-5.2) 11/19/17 13:15 Sodium 138.0 mmol/l (132-148) 11/19/17 13:15 Chloride 110.0 mmol/L (98-107) H 11/19/17 13:15 Glucose 100 mg/dl (65-105) 11/19/17 13:15 Lactate 0.7 mmol/L (0.7-2.1) 11/19/17 13:15 Sodium 141 mmol/L (132-148) 11/21/17 06:28 Potassium 4.0 mmol/L (3.6-5.2) 11/21/17 06:28 Chloride 113 mmol/L (98-107) H 11/21/17 06:28 Carbon Dioxide 21 mmol/L (22-30) L 11/21/17 06:28 Anion Gap 12 (10-20) 11/21/17 06:28 BUN 13 mg/dL (7-17) 11/21/17 06:28 Creatinine 0.9 mg/dL (0.7-1.2) 11/21/17 06:28 Est GFR ( Amer) > 60 11/21/17 06:28 Est GFR (Non-Af Amer) > 60 11/21/17 06:28 Random Glucose 79 mg/dL (65-105) 11/21/17 06:28 Calcium 8.3 mg/dl (8.6-10.4) L 11/21/17 06:28 Phosphorus 2.7 mg/dL (2.5-4.5) 11/20/17 06:45 Magnesium 1.8 mg/dL (1.6-2.3) 11/20/17 06:45 Total Bilirubin 1.0 mg/dL (0.2-1.3) 11/21/17 06:28 AST 28 U/L (14-36) 11/21/17 06:28 ALT 18 U/L (9-52) 11/21/17 06:28 Alkaline Phosphatase 86 U/L (38-126) 11/21/17 06:28 Total Protein 5.6 g/dL (6.3-8.3) L 11/21/17 06:28 Albumin 2.8 g/dL (3.5-5.0) L 11/21/17 06:28 Globulin 2.8 gm/dL (2.2-3.9) 11/21/17 06:28 Albumin/Globulin Ratio 1.0 (1.0-2.1) 11/21/17 06:28 Procalcitonin 3.91 NG/ML (0.19-0.49) H 11/19/17 13:21 Arterial Blood Potassium 3.9 mmol/L (3.6-5.2) 11/19/17 13:15 Urine Color Red (YELLOW) 11/19/17 20:18 Urine Clarity Hazy (Clear) 11/19/17 20:18 Urine pH 5.0 (5.0-8.0) 11/19/17 20:18 Ur Specific [place] 1.021 (1.003-1.030) 11/19/17 20:18 Urine Protein 2+ mg/dL (NEGATIVE) H 11/19/17 20:18 Urine Glucose (UA) 1+ mg/dL (Normal) 11/19/17 20:18 Urine Ketones Trace mg/dL (NEGATIVE) 11/19/17 20:18 Urine Blood 3+ (NEGATIVE) H 11/19/17 20:18 Urine Nitrate Negative (NEGATIVE) 11/19/17 20:18 Urine Bilirubin Negative (NEGATIVE) 11/19/17 20:18 Urine Urobilinogen 4.0 mg/dL (0.2-1.0) H 11/19/17 20:18 Ur Leukocyte Esterase 3+ Amna/uL (Negative) H 11/19/17 20:18 Urine WBC (Auto) 664 /hpf (0-5) H 11/19/17 20:18 Urine RBC (Auto) 914 /hpf (0-3) H 11/19/17 20:18 Ur Squamous Epith Cells 1 /hpf (0-5) 11/19/17 20:18 Urine Bacteria Rare (<OCC) 11/19/17 20:18 - Hospital Course Hospital Course: HPI: "This patient is an 82yo F w/ a PMhx of HLD, and "low blood pressure" who states she had sudden onset lower abdominal and flank pain, worse on the left, since today at 3pm. She states she vomited NBNB contents 4-5 times and went to a satellite center in [place] for [facility] where the following labs were remarkable for: UA 3+ Leuk Nitrite positive with 3+ blood CT ab pelvis shows obstructing calculi along the proximal left ureter largest measuring up to 6mm with mild to moderate left hydro BUN 17 Creat 1.0 11.4 WBC" Patient admitted for left ureteral stone. Dr. Rooney consulted who placed a stent on 11/19/17. Patient originally placed on Ceftriaxone which was switched to Primaxin. Dr. Chauhan (ID) was consulted. Patient's labs were monitored and white count came down to 8.5. Urine culture was negative and blood cultures negative x 48hours. Patient had a low grade fevers on 11/19, but has been afebrile since. Patient says her pain has completely resolved and she is urinating normally. Patient's urine culture and blood cultures were negative. Dr. Rooney ordered an abdominal ultrasound which showed a left double J ureteral stent in position with punctate calcifications abutting the distal segment proximal left side of the urinary bladder. Intrarenal calculi not excluded at the left renal fossa. Patient to follow up with him in 2 weeks. While in the hospital patient had some episodes of low blood pressure. Patient says she has had this issue for many years. Patient was continued on her home medication Midodrine 5mg po daily and given IVF. Upon discharge patient's blood pressure was stable at 114/66. Patient never had any dizziness or lightheadedness associated. Patient was also given a Nicotine patch while in the hospital and encourage to stop smoking. This is a summary of the patient's hospital course, please see chart for details. Discharge Exam - Head Exam Head Exam: ATRAUMATIC, NORMAL INSPECTION, NORMOCEPHALIC - Eye Exam Eye Exam: EOMI, Normal appearance - Respiratory Exam Respiratory Exam: Clear to PA & Lateral, NORMAL BREATHING PATTERN - Cardiovascular Exam Cardiovascular Exam: RRR, +S1, +S2 - GI/Abdominal Exam GI & Abdominal Exam: Normal Bowel Sounds, Soft. absent: Tenderness - Extremities Exam Extremities exam: normal inspection - Back Exam Back exam: absent: CVA tenderness (L), CVA tenderness (R) - Neurological Exam Neurological exam: Alert, Oriented x3 - Psychiatric Exam Psychiatric exam: Normal Affect, Normal Mood - Skin Skin Exam: Intact, Normal Color, Warm Discharge Plan - Discharge Medications Prescriptions: Levofloxacin [Levaquin] 500 mg PO DAILY #7 tablet Nicotine 14 mg/24 hr [Nicoderm CQ] 14 mg TD DAILY #14 patch Nicotine 21 mg/24 hr [Nicoderm Cq] 21 mg TD DAILY #42 patch Nicotine 7 mg/24 hr [Nicoderm CQ] 7 mg TD DAILY #14 patch Tamsulosin [Flomax] 0.4 mg PO DAILY #30 cap - Follow Up Plan Condition: FAIR Disposition: HOME/ ROUTINE Instructions: Smoking: Not Just Harmful to Your Lungs and Heart, Levofloxacin ( Systemic), Acute Abdomen (Belly Pain), Renal Colic (DC), Quitting Smoking, Nicotine, Tamsulosin, Kidney Infection (DC), Urinary Tract Infection in Women ( DC) Additional Instructions: Patient stable for discharge as per Dr. Gant and Dr. Rooney. 1. Patient to continue home medications Midodrine 5mg by mouth daily and Simvastatin 20mg by mouth daily. Patient says she has refills from her primary care doctor and does not need prescriptions. 2. Patient provided with prescriptions for nicotine patches. Patient should use 21mg patch daily for 6 weeks then 14mg patch daily for 2 weeks then 7mg patch daily for 2 weeks. 3. Patient to take Levaquin 500mg by mouth for 7 days 4. Patient to take Flomax .4mg daily 5. Patient to follow up with Dr. Julieth Rooney in 2 weeks. Patient to please return to Emergency Room if symptoms return. Patient explained instructions who understands and agrees. Referrals: Julieth Rooney MD [Staff Provider] - <Cm Gant - Last Filed: 11/21/17 17:51> Provider - Provider Date of Admission: 11/19/17 03:47 Attending physician: Cm Gant DO Hospital Course - Lab Results Lab Results: Micro Results 11/19/17 09:07 Urine,Kidney Urine Culture - Final No Growth (<1,000 CFU/ML) 11/20/17 18:30 Urine,Clean Catch Urine Culture - Final No Growth (<1,000 CFU/ML) 11/19/17 03:38 Blood-Venous Blood Culture - Preliminary NO GROWTH AFTER 48 HOURS 11/19/17 03:38 Blood-Venous Blood Culture - Preliminary NO GROWTH AFTER 48 HOURS 11/19/17 08:46 Urine,Catheterized Urine Culture - Final No Growth (<1,000 CFU/ML) Most Recent Lab Values WBC 8.5 K/uL (4.8-10.8) 11/21/17 06: RBC 3.24 Mil/uL (3.80-5.20) L 11/21/17: Hgb 10.6 g/dL (11.0-16.0) L 11/21/17: Hct 30.3 % (34.0-47.0) L 11/21/17: MCV 93.5 fL (81.0-99.0) 11/21/17: MCH 32.8 pg (27.0-31.0) H 11/21/17: MCHC 35.1 g/dL (33.0-37.0) 11/21/17: RDW 12.8 % (11.5-14.5) 11/21/17: Plt Count 116 K/uL (130-400) L 11/21/17: MPV 8.4 fL (7.2-11.7) 11/21/17 06: Neut % (Auto) 60.5 % (50.0-75.0) 11/21/17: Lymph % (Auto) 27.2 % (20.0-40.0) 11/21/17: [place] % (Auto) 8.7 % (0.0-10.0) 11/21/17: Eos % (Auto) 3.2 % (0.0-4.0) 11/21/17: Baso % (Auto) 0.4 % (0.0-2.0) 11/21/17: Neut # (Auto) 5.2 K/uL (1.8-7.0) 11/21/17: Lymph # (Auto) 2.3 K/uL (1.0-4.3) 11/21/17 06: [place] # (Auto) 0.7 K/uL (0.0-0.8) 11/21/17: Eos # (Auto) 0.3 K/uL (0.0-0.7) 05/04/18 06:28 Baso # (Auto) 0.0 K/uL (0.0-0.2) 11/21/17 06:28 Neutrophils % (Manual) 87 % (50-75) H 11/19/17 09:25 Lymphocytes % (Manual) 10 % (20-40) L 11/19/17 09:25 Monocytes % (Manual) 3 % (0-10) 11/19/17 09:25 Differential Comment 11/20/17 06:45 Platelet Estimate Normal (NORMAL) 11/19/17 09:25 RBC Morphology Normal 11/19/17 09:25 PT 12.2 SECONDS (9.7-12.2) 11/19/17 03:40 INR 1.1 11/19/17 03:40 APTT 33 SECONDS (21-34) 11/19/17 03:40 Puncture Site Rra 11/19/17 13:15 pCO2 36 mm/Hg (35-45) 11/19/17 13:15 pO2 64 mm/Hg (80-100) L 11/19/17 13:15 HCO3 23.2 mmol/L (21-28) 11/19/17 13:15 ABG pH 7.40 (7.35-7.45) 11/19/17 13:15 ABG Total CO2 23.4 mmol/L (22-28) 11/19/17 13:15 ABG O2 Saturation 96.3 % (95-98) 11/19/17 13:15 ABG Base Excess -2.0 mmol/L (-2.0-3.0) 11/19/17 13:15 Loc Test Pos 11/19/17 13:15 ABG Potassium 3.9 mmol/L (3.6-5.2) 11/19/17 13:15 Sodium 138.0 mmol/l (132-148) 11/19/17 13:15 Chloride 110.0 mmol/L (98-107) H 11/19/17 13:15 Glucose 100 mg/dl (65-105) 11/19/17 13:15 Lactate 0.7 mmol/L (0.7-2.1) 11/19/17 13:15 Sodium 141 mmol/L (132-148) 11/21/17 06:28 Potassium 4.0 mmol/L (3.6-5.2) 11/21/17 06:28 Chloride 113 mmol/L (98-107) H 11/21/17 06:28 Carbon Dioxide 21 mmol/L (22-30) L 11/21/17 06:28 Anion Gap 12 (10-20) 11/21/17 06:28 BUN 13 mg/dL (7-17) 11/21/17 06:28 Creatinine 0.9 mg/dL (0.7-1.2) 11/21/17 06:28 Est GFR ( Amer) > 60 11/21/17 06:28 Est GFR (Non-Af Amer) > 60 11/21/17 06:28 Random Glucose 79 mg/dL (65-105) 11/21/17 06:28 Calcium 8.3 mg/dl (8.6-10.4) L 11/21/17 06:28 Phosphorus 2.7 mg/dL (2.5-4.5) 11/20/17 06:45 Magnesium 1.8 mg/dL (1.6-2.3) 11/20/17 06:45 Total Bilirubin 1.0 mg/dL (0.2-1.3) 11/21/17 06:28 AST 28 U/L (14-36) 11/21/17 06:28 ALT 18 U/L (9-52) 11/21/17 06:28 Alkaline Phosphatase 86 U/L (38-126) 11/21/17 06:28 Total Protein 5.6 g/dL (6.3-8.3) L 11/21/17 06:28 Albumin 2.8 g/dL (3.5-5.0) L 11/21/17 06:28 Globulin 2.8 gm/dL (2.2-3.9) 11/21/17 06:28 Albumin/Globulin Ratio 1.0 (1.0-2.1) 11/21/17 06:28 Procalcitonin 3.91 NG/ML (0.19-0.49) H 11/19/17 13:21 Arterial Blood Potassium 3.9 mmol/L (3.6-5.2) 11/19/17 13:15 Urine Color Red (YELLOW) 11/19/17 20:18 Urine Clarity Hazy (Clear) 11/19/17 20:18 Urine pH 5.0 (5.0-8.0) 11/19/17 20:18 Ur Specific [place] 1.021 (1.003-1.030) 11/19/17 20:18 Urine Protein 2+ mg/dL (NEGATIVE) H 11/19/17 20:18 Urine Glucose (UA) 1+ mg/dL (Normal) 11/19/17 20:18 Urine Ketones Trace mg/dL (NEGATIVE) 11/19/17 20:18 Urine Blood 3+ (NEGATIVE) H 11/19/17 20:18 Urine Nitrate Negative (NEGATIVE) 11/19/17 20:18 Urine Bilirubin Negative (NEGATIVE) 11/19/17 20:18 Urine Urobilinogen 4.0 mg/dL (0.2-1.0) H 11/19/17 20:18 Ur Leukocyte Esterase 3+ Amna/uL (Negative) H 11/19/17 20:18 Urine WBC (Auto) 664 /hpf (0-5) H 11/19/17 20:18 Urine RBC (Auto) 914 /hpf (0-3) H 11/19/17 20:18 Ur Squamous Epith Cells 1 /hpf (0-5) 11/19/17 20:18 Urine Bacteria Rare (<OCC) 11/19/17 20:18 Attending/Attestation - Attestation I have personally seen and examined this patient.: Yes I have fully participated in the care of the patient.: Yes I have reviewed all pertinent clinical information, including history, physical exam and plan: Yes Notes (Text): 11/21/17 17:48 Medical attending: Patient was seen and examined by me. Agree with the above note by the resident The patient was doing well. She denied having pain. She was very talkative, and very pleasant affect. Her blood pressure, which she reports as normally being low - has been in the 120 systolic range The WBC is decreased. Blood cultures negative as well 48hr and urine cultures negative as well (this being said we do not have the cultures from when she went to the urgent care clinic before comming here) She will need to follow up with her PMD as well as with urology. She will also have an RX for additional days of abx thank you Cm Gant
[2017-11-21] MEDS ORDERED: Pneumococcal 23-Valent Vaccine IM ONE (14:00)
[2017-11-21 15:54] VITALS: PULSE 61
--- NOTE | 2017-11-21 16:00 | RAD ---
HISTORY: urolithiasis COMPARISON: No prior. FINDINGS: BOWEL: Normal. No obstruction. No free air. BONES: Two scoliotic lumbar spinal deformity with advanced multilevel degenerative disc disease and facet joint arthropathy. OTHER FINDINGS: A left double-J ureteral stent is in position with tiny calcifications questioned abutting the distal portion of the stent in the pelvis proximal to the urinary bladder. No other otherwise appreciated associated with the remainder of the stent. Intrarenal calculi not excluded at the left flank superiorly. IMPRESSION: Left double-J ureteral stent in position with punctate calcifications abutting the distal segment proximal left side of the urinary bladder. Intrarenal calculi not excluded at the left renal fossa. CT is available follow-up clinically warranted.
[2017-11-21 16:31] VITALS: BP 92/60; TEMP 98.9; O2SAT 96
--- NOTE | 2017-11-21 17:41 | PCM.URO ---
Urology Progress Note - General General: No Complaints, Tolerating Diet - Subjective Abdominal Pain: No Flank Pain: No Nausea: No Vomiting: No Voiding Well: Yes Hematuria: No Frequency: Yes Good Stream: Yes Weak Stream: No Stone Passed: No Dsypnea: No Chest Pain: No Fever & Chills: No - Objective Lab Studies: Reviewed Lab Results Last 24 Hours: Laboratory Results - last 24 hr 11/21/17 11/21/17 06:28 06:28 WBC 8.5 RBC 3.24 L Hgb 10.6 L Hct 30.3 L MCV 93.5 MCH 32.8 H MCHC 35.1 RDW 12.8 Plt Count 116 L MPV 8.4 Neut % (Auto) 60.5 Lymph % (Auto) 27.2 Bee % (Auto) 8.7 Eos % (Auto) 3.2 Baso % (Auto) 0.4 Neut # (Auto) 5.2 Lymph # (Auto) 2.3 Bee # (Auto) 0.7 Eos # (Auto) 0.3 Baso # (Auto) 0.0 Sodium 141 Potassium 4.0 Chloride 113 H Carbon Dioxide 21 L Anion Gap 12 BUN 13 Creatinine 0.9 Est GFR ( Amer) > 60 Est GFR (Non-Af Amer) > 60 Random Glucose 79 Calcium 8.3 L Total Bilirubin 1.0 AST 28 ALT 18 Alkaline Phosphatase 86 Total Protein 5.6 L Albumin 2.8 L Globulin 2.8 Albumin/Globulin Ratio 1.0 Intake & Output: Intake & Output 11/20/17 11/21/17 11/21/17 18:59 06:59 18:59 Intake Total 1270 Balance 1270 Intake: Intake, IV Amount 950 Left Antecubital 950 Oral 320 Other: # Voids Urine, Voided 1 Vital Signs: Vital Signs - 24 hr 11/20/17 11/20/17 11/21/17 20:00 23:05 02:26 Temperature 98.2 F Pulse Rate 84 Respiratory 20 Rate Blood Pressure 118/68 O2 Sat by Pulse 96 95 96 Oximetry 11/21/17 11/21/17 11/21/17 06:33 07:11 07:59 Temperature 98.3 F Pulse Rate 72 80 Respiratory 20 Rate Blood Pressure 114/66 O2 Sat by Pulse 96 97 Oximetry 11/21/17 11/21/17 11/21/17 10:00 15:00 15:30 Temperature 98.9 F Pulse Rate 64 61 Respiratory 20 Rate Blood Pressure 92/60 L O2 Sat by Pulse 97 96 Oximetry - Physical Exam Abdominal Exam: Soft, Non-Tender, Non-Distended Bowel Sounds: Normal Back: No CVA Tenderness Urine Color: Clear, Yellow Extremities: Normal: Bilateral - Plan Intake & Output: Yes Additional Information: Imp: progressing well. UTI. Urolithiasis. Rec/plan: Check culture of 11/18. Antibiotic rx. KUB. Discussed w pt and medical staff - Date & Time of Note Date: 11/21/17 Time: 12:35
== END 2017-11-21 18:29 | disposition home or self-care (01) ==
LOC: C.ER 02:32 → C.6T 03:47
PROVIDERS: ADMIT Hospitalist; ATTEND Hospitalist
DX: N13.6 Pyonephrosis (principal); E78.00 Pure hypercholesterolemia, unspecified; F17.210 Nicotine dependence, cigarettes, uncomplicated; J98.11 Atelectasis; K21.9 Gastro-esophageal reflux disease without esophagitis; Z96.653 Presence of artificial knee joint, bilateral; Z90.49 Acquired absence of other specified parts of digestive tract; I95.9 Hypotension, unspecified
CPT/HCPCS: 36415; 52332; 71045; 74019; 80048; 80053; 81001; 82803; 83735; 84100; 84145; 85025; 85610; 85730; 87040; 87086; 93005; 94640; 97110; 97116; 97162; 99285; C1758; C1769; C2617; G0378; G8978; G8979; J0696; J0743; J7040

== ENCOUNTER 2017-12-02 08:16 | Day surgery (SDC) | payer MEDICARE ==
[2017-12-02] MEDS ORDERED: Propofol 10 mg/ml Inj (20 ML) ONE (09:49)
[2017-12-02] MEDS ORDERED: Lidocaine 2% Jelly (Uro-Jet) ONE (10:06)
[2017-12-02] MEDS ORDERED: cefTRIAXone IV 1 gm in Dextros 50 ML IVPB ONE (10:06)
[2017-12-02] MEDS ORDERED: Iohexol 240 (50 ml) ONE (10:06)
[2017-12-02] MEDS ORDERED: HYDROmorphone 0.5 mg/0.5 ml ISec IVP PRN (11:29)
--- NOTE | 2017-12-02 11:33 | PCM.SURG1 ---
Surgeon's Initial Post Op Note - Surgeon's Notes Surgeon: Douglas Rooney [employer] Preparer: none Type of Anesthesia: General LMA Pre-Operative Diagnosis: L ureteral calculi Operative Findings: same. 2 distal L ureteral calculi. 1 proximal L ureteral calculus Post-Operative Diagnosis: same Operation Performed: cysto, L ureteroscopy. L laser ureterolithotripsy, stone basketing. Stent insertion. EUA Specimen/Specimens Removed: urine. stones Estimated Blood Loss: EBL {In ML}: 0 Blood Products Given: N/A Date of Surgery/Procedure: 12/02/17 Time of Surgery/Procedure: 11:15
[2017-12-02 13:12] VITALS: PULSE 72; RESP 16; TEMP 97.1
--- NOTE | 2017-12-02 13:15 | RAD ---
PROCEDURE: Intraoperative Fluoroscopy. HISTORY: LT URETERAL STONE FINDINGS: Fluoroscopic assistance was provided. 15.8 seconds fluoroscopy time. Radiation dose = 1.29 mGy Please refer to the operative report from Dr. MARTIN TOPPENISH.
[2017-12-02 13:44] VITALS: BP 107/62; O2SAT 100
--- NOTE | 2017-12-02 14:41 | RAD ---
HISTORY: LT URETERAL STONE COMPARISON: 11/19/2017 FINDINGS: BOWEL: Three films are submitted in varying degrees of obliquity. A left ureteral stent is noted. There is a 6 mm proximal left ureteral calculus. There is no evidence of bowel obstruction. There is mild retained feces. BONES: There is mild dextroscoliotic curvature of the lumbar spine. OTHER FINDINGS: None. IMPRESSION: 6 mm proximal left ureteral calculus. Left ureteral stent.
--- NOTE | 2017-12-10 08:42 | OP ---
PROCEDURE DATE: 12/02/2017 PREOPERATIVE DIAGNOSES: History of renal colic. Ureteral calculi. POSTOPERATIVE DIAGNOSES: History of renal colic. Ureteral calculi. Left distal ureteral calculi. Right proximal ureteral calculus. PROCEDURES: Cystoscopy. Left ureteroscopy. Left distal laser ureterolithotripsy. Left distal ureteral stone basketing. Proximal ureteroscopy. Left proximal ureteral stone basketing. Insertion of left ureteral stent. SURGEON: Dr. Julieth Rooney. Procedure was formed under video endoscopic control as well as under fluoroscopic control. DESCRIPTION OF PROCEDURE: Procedure as follows; The patient received perioperative antibiotics. The patient was placed in lithotomy position. Genitalia prepped and draped sterilely. Anesthesia was applied by the anesthesiologist. Maintenance Craftsman film of the abdomen was obtained. The left ureteral stent was in proper position. There was a proximal ureteral calculus noted adjacent to the stent. There were several possible distal ureteral calcifications adjacent to the stent. The genitalia prepped and sterilely. A 22-Syrian cystoscope sheath was introduced with obturator. Urine was sent for bacteriologic examination. The bladder was inspected. Left ureteral stent was grasped with rigid grasping forceps and delivered with the cystoscope sheath to the level of urethral meatus. A 0.035-inch guidewire was inserted into the ureteral stent and passed up to level of the kidney. Ureteroscopy was performed. A 7-Syrian mini rigid ureteroscope was introduced per urethra and advanced into the bladder. The ureteroscope was advanced atraumatically into the distal ureter. The distal ureteral calculi were identified. Laser ureterolithotripsy was performed using the holmium laser and 365 micron fiber. Fragmentation and dusting were performed. Multiple small fragments were removed using the helical stone basket. All distal ureteral fragments were removed. Ureteroscope was reintroduced. The ureteroscope was passed proximally over a working wire into the mid and then proximal ureter in an atraumatic fashion. The upper ureteral stone was identified. The stone was engaged in the basket. The stone was removed and the ureteroscope was removed in an atraumatic fashion. The stone was engaged in the basket. The basket did not require closing to retain the stone. The 6-Syrian MultiLength Stent was inserted over the remaining guidewire. Proper stent position was confirmed with fluoroscopy and endoscopy. The bladder was reinspected and confirmed the above findings. The bladder was then drained. Cystoscope and sheath removed. Exam under anesthesia was performed. There was mild pelvic prolapse. There was mild foreshortening of the vagina. There was no abnormal pelvic mass fixation or induration. The patient tolerated the procedure without complication. Julieth Rooney MD
== END 2017-12-02 13:44 | disposition home or self-care (01) ==
LOC: C.SDS 08:16
PROVIDERS: ATTEND Urology
DX: N20.9 Urinary calculus, unspecified (principal); N20.1 Calculus of ureter; N20.0 Calculus of kidney
CPT/HCPCS: 52332; 74018; 82365; 87086; 88300; C1758; C1769; C2617; J0696; J1580